=== PATIENT | male | born 1990 | race Caucasian/White ===

== ENCOUNTER 2019-07-31 11:39 | Emergency (ER) | payer SELFPAY ==
[~2019-07-31] VITALS: Ht 190.5 cm; Wt 93.0 kg
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
--- NOTE | 2019-07-31 12:15 | NUR ---
ED Nurse Note: pt aware of plan to have ct and then plastic surgeon to eval pt.
[2019-07-31 12:16] VITALS: BP 146/69
[2019-07-31] MEDS ORDERED: Lidocaine HCl 2% Jelly 6ml Tube TOPIC ONE (12:45)
[2019-07-31] MEDS ORDERED: Tetanus/Diptheria/Pertussis IM ONE (12:45)
--- NOTE | 2019-07-31 13:31 | NUR ---
ED Nurse Note: returned from ct scan
[2019-07-31] MEDS ORDERED: Lidocaine 1% 10mg/ml/EPI 0.01mg/ml 30ml INJ ONE (13:45)
--- NOTE | 2019-07-31 13:55 | NUR ---
ED Nurse Note: pt with md suturing laceration.
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
[2019-07-31] MEDS ORDERED: IBUPROFEN600 M1 ORAL (15:28)
[2019-07-31] MEDS ORDERED: CEPHALEXIN500 MG ORAL (15:28)
--- NOTE | 2019-07-31 15:53 | NUR ---
ED Nurse Note: Pt cleared by health care Provider for discharge. DC instructions/prescription was given and explained to pt and verbalized understanding of teachings. All medical devices such as ID band removed. Pt is AAO x4, ambulatory and left with all personal belongings.referral given for f/u.
[2019-07-31 15:54] VITALS: BP 146/69
--- NOTE | 2019-07-31 20:15 | Procedure Note ---
DATE OF PROCEDURE: 07/31/2019 CHIEF COMPLAINT: Forehead laceration, chin laceration. PREPROCEDURE DIAGNOSES: 1. Forehead laceration. 2. Chin laceration. POSTPROCEDURE DIAGNOSES: 1. Forehead laceration. 2. Chin laceration. PROCEDURE: Washout and repair of forehead and chin lacerations. The risks, benefits, and alternatives were explained to the patient. Informed consent has been obtained. The patient understands the risks include, but are not limited to, bleeding, infection, and pain, scar, wound reopening, nerve damage, and he has signed this and understands this. I first carefully inspected and washed out both lacerations. Prior to my arrival, they had both been washed out with Betadine and also anesthetized with 1% lidocaine with epinephrine by the emergency room attending. I placed additional anesthetic in both incisions to make sure he was properly anesthetized and then proceeded to irrigate both wounds copiously with sterile saline. I first started with the forehead laceration and it was prepped and draped in standard surgical fashion. I then proceeded to carefully inspect the wound and irrigated it an additional time. It was full-thickness through the skin. It measured approximately 3 cm. It also went completely through the eyebrow hair, which I took care not to disturb. There was a small amount of skin abrasion in the forehead area, which I pointed out to the patient. Other than that, the wound was clean and the skin edges were also clean. I used 3-0 PDS as the deep dermal suture to carefully reapproximate the skin edges and then 6-0 nylon was used as an interrupted suture to close the skin. I then turned to the chin laceration. The chin area was prepped and draped in standard surgical fashion. I carefully examined it. It measured 1.5 cm. It was clean. It was full-thickness. It did not involve the underlying muscle. I again copiously irrigated it to inspect it. I then proceeded to close the deep layer with a deep dermal suture using 3-0 PDS and then 6-0 nylon was used to close the skin with interrupted sutures. Sterile Steri-Strips were placed over both incisions and this was the end of the procedure. The patient had no complications, no pain, and no bleeding. Franci Owens M.D. DR: JERMAINE JOB#: [id number] CC: TAYLOR
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
== END 2019-07-31 15:56 | disposition home or self-care (01) ==
LOC: EMR 15:45
DX: S01.81XA Laceration without foreign body of other part of head, initial encounter (principal); V03.19XA Pedestrian with other conveyance injured in collision with car, pick-up truck or van in traffic accident, initial encounter; Y92.9 Unspecified place or not applicable; Z23 Encounter for immunization
CPT/HCPCS: 70486; 90471; 90715; 99284

== ENCOUNTER → 2019-10-23 | Outpatient (CLI) | payer OTHER ==
[~2019-10-23] MED LIST: CEPHALEXIN500 MG ORAL; IBUPROFEN600 M1 ORAL
== END | disposition home or self-care (01) ==
LOC: WCC 15:23 → EDSTATUS 10-26 09:47
DX: S01.1 Open wound of eyelid and periocular area (principal); L90.5 Scar conditions and fibrosis of skin; V03.19 Pedestrian with other conveyance injured in collision with car, pick-up truck or van in traffic accident